=== PATIENT | male | born 1995 | race Two or more races ===

== ENCOUNTER 2021-04-23 22:00 | Emergency (ER) | payer OTHER ==
[~2021-04-23] VITALS: Ht 170.2 cm; Wt 90.9 kg
--- NOTE | 2021-04-23 22:04 | PHYS DOC ---
Past History Past Surgical History Rt. Knee medial meniscus repair General Adult HPI: HPI: ". We were training.. and during a take down.. move. I stepped wrong and twisted Lt knee..the one that got a meniscus repair last year... 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 This is the same knee he had a meniscus repair on last year. Patient is unable to do straight leg lift currently. Patient look like [place] pain in left medial meniscus. Does have a scar at this area. Distal neurovascular intact. Does have crutches. And is wearing a splint currently. No other injury during the training exercise. Patient only follows with [facility]. No other health history. Up-to-date with vaccinations. No recent travel. No history of immunosuppression. Review of Systems: Review of Systems: Constitutional: Denies fever or chills Eyes: Denies change in visual acuity HENT: Denies nasal congestion or sore throat Respiratory: Denies cough or shortness of breath Cardiovascular: Denies chest pain or edema GI: Denies abdominal pain, nausea, vomiting, bloody stools or diarrhea : Denies dysuria Musculoskeletal: Denies back pain or joint pain Integument: Denies rash Neurologic: Denies headache, focal weakness or sensory changes Endocrine: Denies polyuria or polydipsia Lymphatic: Denies swollen glands Psychiatric: Denies depression or anxiety Family History: Family History: Noncontributory to presentation Current Medications: Current Meds: See nursing for home meds Allergies: Allergies: No known drug allergies Physical Exam: PE: Constitutional: Well developed, well nourished, no acute distress, non-toxic appearance. [] HENT: Normocephalic, atraumatic, bilateral external ears normal, oropharynx moist, no oral exudates, nose normal. [] Eyes: PERRLA, EOMI, conjunctiva normal, no discharge. [] Neck: Normal range of motion, no tenderness, supple, no stridor. [] Cardiovascular:Heart rate regular rhythm, no murmur [] Lungs & Thorax: Bilateral breath sounds equal at apex on auscultation [] Abdomen: Bowel sounds normal, soft, no tenderness, no masses, no pulsatile masses. [] Skin: Warm, dry, no erythema, no rash. [] Back: No tenderness, no CVA tenderness. [] Extremities: No tenderness, no cyanosis, no clubbing, ROM intact, no edema. [] Except findings in left knee as per HPI Neurologic: Alert and oriented X 3, normal motor function, normal sensory function, no focal deficits noted. [] Psychologic: Affect anxious judgement normal, mood normal. [] EKG: EKG: [] Radiology/Procedures: Radiology/Procedures: [][place] [address] IMAGING REPORT Signed PATIENT: BRYAN CARABALLO ACCOUNT: [id number] : 1995 LOCATION: ER AGE: 26 SEX: M EXAM STATUS: REG ER ORD. PHYSICIAN: YING LEAVITT MD REASON: Pain, Hx. injury, prior meniscus tear last year- surgical repair PROCEDURE: KNEE LEFT 4V Exam: Left knee 4 views INDICATION: Pain, injury. TECHNIQUE: Frontal, lateral, oblique and sunrise views of the left knee Comparisons: None FINDINGS: Bone mineralization is normal. No acute or healed fractures. Soft tissues are unremarkable. Joint spaces are well-maintained. IMPRESSION: No acute osseous abnormality. Electronically signed by: Branden Osei MD (04/23/2021 10:35 PM) [facility] DICTATED AND SIGNED BY: BRANDEN OSEI MD DATE: 04/23/212232 CC: YING LEAVITT MD; BRE CARNEY MD ~ Heart Score: C/O Chest Pain: N/A Risk Factors: Risk Factors: DM, Current or recent (<one month) smoker, HTN, HLP, family history of CAD, obesity. Risk Scores: Score 0 - 3: 2.5% MACE over next 6 weeks - Discharge Home Score 4 - 6: 20.3% MACE over next 6 weeks - Admit for Clinical Observation Score 7 - 10: 72.7% MACE over next 6 weeks - Early Invasive Strategies Course & Med Decision Making: Course & Med Decision Making Pertinent Labs and Imaging studies reviewed. (See chart for details) Ice packs as needed. Wear knee brace. Use crutches. Elevate. Tylenol and ibuprofen for pain. Follow-up primary care. Follow-up Ortho. Most likely will need MRI to totally evaluate left knee injury. Marked pain take Vicoprofen up 4 x day. Impression: 1. Strain sprain left knee 2. Suspect left medial meniscus injury--reinjury [] Dragnicholas Disclaimer: Dragnicholas Disclaimer: This electronic medical record was generated, in whole or in part, using a voice recognition dictation system. Departure Departure: Referrals: BRE CARNEY MD (PCP) Scripts Hydrocodone/Ibuprofen (HYDROCODONE-IBUPROFEN 7.5-200 ) 1 Each Tablet 1 TAB PO PRN Q6HRS PRN for PAIN, #30 TAB 0 Refills Prov: YING LEAVITT MD 04/23/21 Kylah Disclaimer This chart was dictated in whole or in part using Voice Recognition software in a busy, high-work load, and often noisy Emergency Department environment. It may contain unintended and wholly unrecognized errors or omissions. Dragon Disclaimer This chart was dictated in whole or in part using Voice Recognition software in a busy, high-work load, and often noisy Emergency Department environment. It may contain unintended and wholly unrecognized errors or omissions. YING LEAVITT MD Apr 23, 2021 22:04
[2021-04-23] MEDS ORDERED: KETOROLAC 60 MG/2 ML VIAL. IM ONE (22:15)
[2021-04-23 22:22] VITALS: BP 143/91
--- NOTE | 2021-04-23 22:38 | RAD ---
Exam: Left knee 4 views INDICATION: Pain, injury. TECHNIQUE: Frontal, lateral, oblique and sunrise views of the left knee Comparisons: None FINDINGS: Bone mineralization is normal. No acute or healed fractures. Soft tissues are unremarkable. Joint spa mateo are well-maintained. IMPRESSION: No acute osseous abnormality. Electronically signed by: Branden Dodson MD (04/23/2021 10:35 PM) [facility]
[2021-04-23] MEDS ORDERED: HYDR-1179 PO (22:56)
[2021-04-23] MEDS ORDERED: HYDROcodon/IBUPROFEN 7.5/200MG 1 TAB TABLET PO ONE (23:15)
== END 2021-04-23 23:10 | disposition home or self-care (01) ==
LOC: ER 22:00
DX: S83.92XA Sprain of unspecified site of left knee, initial encounter (principal); X50.9XXA Other and unspecified overexertion or strenuous movements or postures, initial encounter; Y93.89 Activity, other specified; Y92.89 Other specified places as the place of occurrence of the external cause; Y99.8 Other external cause status
CPT/HCPCS: 73564; 96372; 99283; J1885